=== PATIENT | male | born 1970 | race Caucasian/White ===

== ENCOUNTER → 2018-10-21 13:17 | Outpatient (REF) | payer OTHER, SELFPAY | LOC: LAB 13:17 | PROVIDERS: PCP Internal Medicine; Visit Provider Otolaryngology | DX: J34.0 Abscess, furuncle and carbuncle of nose (principal); G47.33 Obstructive sleep apnea (adult) (pediatric) | CPT/HCPCS: 87070; 87077; 87147; 87186 ==

== ENCOUNTER → 2020-03-18 13:48 | Outpatient (CLI) | payer OTHER, SELFPAY ==
[2020-03-18 14:41] LABS: Add Manual Diff / Slide Review NO; Basophils Absolute Auto 0 /uL (0-100); Basophils Percent Auto 0.4 % (0-2); Eosinophils Absolute Auto 100 /uL (0-450); Eosinophils Percent Auto 1.4 % (2-4); Hematocrit 42.9 % (41-53); Lymphocytes Absolute Auto 1600 /uL (1100-4500); Lymphocytes Percent Auto 28.1 % (25-40); Mean Corpuscular HGB Conc 34.8 % (30-36); Mean Corpuscular Hemoglobin 31.6 PG (26-34); Mean Corpuscular Volume 90.8 fL (80-100); Monocytes Absolute Auto 400 /uL (0-900); Monocytes Percent Auto 6.8 % (3-14); Neutrophils Absolute Auto 3600 /uL (1500-7000); Neutrophils Percent Auto 63.3 % (50-75); Platelet Count 259 X10^3/uL (150-400); Red Blood Cell Count 4.73 X10^6/uL (4.5-5.9); White Blood Cell Count 5.8 X10^3/uL (4.5-11.0)
[2020-03-18 15:05] LABS: Alanine Aminotransferase 37 IU/L (<50); Albumin 4.8 g/dL (3.5-5.0); Albumin Globulin Ratio 1.8 (1.0-2.8); Alkaline Phosphatase 77 U/L (38-126); Aspartate Aminotransferase 29 IU/L (17-59); BUN Creatinine Ratio 15.1 (6-22); Bilirubin Total 0.9 mg/dL (0.2-1.3); Blood Urea Nitrogen 18 mg/dL (9-20); Calcium 9.9 mg/dL (8.4-10.2); Carbon Dioxide 28 mmol/L (22-32); Chloride 104 mmol/L (98-107); Cholesterol 252 mg/dL (140-199); Creatinine Urine Random 159.5 mg/dL; Estimated Glomerular Filt Rate > 60.0 mL/min (>60); Globulin 2.7 g/dL (1.7-4.1); Glucose 113 mg/dL (70-100); HDL Cholesterol 54 mg/dL (40-60); HEMOLYSIS < 15 (0-50); LDL Cholesterol Calculated 132 mg/dL (<100); Potassium 4.2 mmol/L (3.4-5.1); Sodium 138 mmol/L (137-145); Total Protein 7.5 g/dL (6.3-8.2); Triglycerides 330 mg/dL (35-150); Uric Acid 9.1 mg/dL (3.5-8.5)
[2020-03-18 15:12] LABS: Microalbumin Urine Random 0.8 mg/dL (0-1.6)
[2020-03-18 15:35] LABS: TSH w/ Reflex to FT4 3.19 uIU/mL (0.47-4.68)
== END ==
LOC: PHYS 13:52 → LAB 13:53
PROVIDERS: PCP Family Medicine; Referring Provider Family Medicine; Visit Provider Family Medicine
DX: Z13.29 Encounter for screening for other suspected endocrine disorder (principal); Z12.11 Encounter for screening for malignant neoplasm of colon; Z12.5 Encounter for screening for malignant neoplasm of prostate; E78.5 Hyperlipidemia, unspecified; E79.0 Hyperuricemia without signs of inflammatory arthritis and tophaceous disease; I10 Essential (primary) hypertension
CPT/HCPCS: 36415; 80053; 80061; 82043; 82565; 82570; 84443; 84520; 84550; 85025; G0103

== ENCOUNTER → 2020-06-08 08:31 | Outpatient (CLI) | payer OTHER, SELFPAY ==
[2020-06-09 16:55] LABS: Fecal Immunochemical Test Negative (Negative)
== END ==
PROVIDERS: PCP Family Medicine; Referring Provider Family Medicine; Visit Provider Family Medicine
DX: Z12.11 Encounter for screening for malignant neoplasm of colon (principal); Z12.5 Encounter for screening for malignant neoplasm of prostate
CPT/HCPCS: 82274

== ENCOUNTER → 2020-06-08 09:36 | Outpatient (CLI) | payer OTHER, SELFPAY ==
--- NOTE | 2020-06-08 09:37 | DI.RAD.S_ITS ---
PROCEDURE: XR HAND RT MIN 3V INDICATIONS: right thumb pain TECHNIQUE: 3 views of the hand(s) acquired. COMPARISON: None. FINDINGS: Bones: No fractures or dislocations. Carpal bones are normally aligned. No suspicious bony lesions. Soft tissues: No suspicious soft tissue calcifications. IMPRESSION: No fracture. No osseous lesion. If symptoms and/or clinical suspicion for pathology persists, further assessment with repeat radiographs (7-10 days) or advanced imaging (e.g. CT, MRI or bone scan) may be helpful. Dictated by: Leonora Dey MD, PhD on 06/08/2020 at 16:24 Approved by: Leonora Dey MD, PhD on 06/08/2020 at 16:24
== END ==
PROVIDERS: PCP Family Medicine; Referring Provider Family Medicine; Visit Provider Family Medicine
DX: M79.644 Pain in right finger(s) (principal); Z12.5 Encounter for screening for malignant neoplasm of prostate; Z12.11 Encounter for screening for malignant neoplasm of colon
CPT/HCPCS: 73130; 82274

== ENCOUNTER → 2020-07-11 06:26 | Outpatient (CLI) | payer OTHER, SELFPAY ==
--- NOTE | 2020-07-11 06:27 | DI.MRI.S_ITS ---
PROCEDURE: MR WRIST RT WO CON INDICATIONS: Persistence of discomfort base of right thumb now with insta TECHNIQUE: Noncontrast coronal proton density fast spin echo and T2 fast spin echo with fat saturation; coronal 3-D gradient echo, axial T1 spin echo and T2 fast spin echo with fat saturation, sagittal T1 spin echo through the wrist. COMPARISON: None. FINDINGS: Image quality: Excellent. Bones and cartilage: The carpal bones are normally aligned. No fracture or dislocation. Mild osteoarthritic changes involving radiocarpal and ulnar carpal joints are seen with joint space narrowing and mild subchondral sclerosis and edema. Osteoarthritic changes also noted involving scaphoid trapezial joint and 1st CMC joint. No evidence for avascular necrosis. Carpal ligaments: The scapholunate and lunotriquetral ligaments appear intact. In the absence of intra-articular contrast, the extrinsic carpal ligaments are not well identified. On sagittal images, the pisohamate ligament appears intact. Triangular fibrocartilage complex: The triangular fibrocartilage appears intact. The adjacent meniscal homolog appears normal in the absence of intra-articular contrast. The extensor carpi ulnaris tendon is normal in location and morphology. Tendons and soft tissues: The carpal tunnel structures appear normal, including the median nerve. The ulnar nerve appears normal within Guyon's canal. All six extensor tendon compartments demonstrate normal morphology, without pathologic tendon sheath fluid. No soft tissue ganglion cysts. IMPRESSION: 1. 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 No fracture or dislocation. 2. Intrinsic and extrinsic wrist ligaments are grossly intact. Triangular fibrocartilage complex is intact. 3. No significant wrist tendinosis or tendon tear. Dictated by: Jim Butt M.D. on 07/11/2020 at 10:09 Approved by: Jim Butt M.D. on 07/11/2020 at 10:20
== END ==
PROVIDERS: PCP Family Medicine; Referring Provider Family Medicine; Visit Provider Family Medicine
DX: S63.641A Sprain of metacarpophalangeal joint of right thumb, initial encounter (principal); X58.XXXA Exposure to other specified factors, initial encounter
CPT/HCPCS: 73221

== ENCOUNTER 2020-08-22 12:45 | Outpatient (RCR) | payer OTHER, SELFPAY ==
--- NOTE | 2020-08-18 16:50 | PT.OIE ---
Current Diagnoses Sprain of metacarpophalangeal joint of unspecified thumb, initial encounter (08/18/20) Past Medical History (Last Updated 07/06/20 @ 18:40 by Win Garrison DO) Asthma Hyperlipidemia Hypertension Hyperuricemia Mild depression Skier's thumb Strain of right thumb Well adult exam Visit Care Team Role Provider Type Win Garrison DO Attending Provider Physician Family Provider Primary Care Provider Referring Provider Specialty: Family Practice Address: [address] [place] [address], [facility] Email: [email or web address] Physical Therapy Initial Evaluation PT-OP-A Visit Information Start: 08/14/20 18:32 Freq: Status: Active Protocol: Document 08/18/20 12:46 LRN (Rec: 08/18/20 13:44 LRN [id number]) Out-Patient Physical Therapy Visit Information Visit Information Visit Type Initial Evaluation Visit Start Time 12:50 Visit Stop Time 13:42 Total Visit Minutes 52 Visit Number 1 Evaluation Information Evaluation Date 08/18/20 PT-OP-B Current Condition Start: 08/14/20 18:32 Freq: Status: Active Protocol: Document 08/18/20 12:46 LRN (Rec: 08/18/20 13:44 LRN [id number]) Current Condition History of Current Condition Onset Date November 2007 History of Current Condition Pt reports he fell off a ladder at work, in [place]. He states, on the R side, broke humerus arm, shattered wrist and got hernia in pelvic area. States he had surgery on R wrist 12/2007 to cleaned things out, had PT and had somewhat return of motion and now it occasionally catches. States in May he drove straight through to [place] ( 16 hrs), woke up the next day with the R thumb (also around the thumb) swollen and bright red and it moved into the wrist. After the swelling went down the R thumb, index & middle finger (entire finger) went numb. Now the swelling and numbness is intermittent. Gets episodes of gout in the feet. Prior Treatments and Tests 2008 X-rays in [place]. [facility]. 2008 Surgery @ [facility], ?Dr Kaufman. Recent X-ray & MRI @ . Treatment Goals Patient/Caregiver Goals Pt goal with therapy is to be able to work for 9-10 more years, so he wants to find the root problem and get if fixed if there is a problem. 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 Prior Functional Status Baseline Function- ADL's Independent Baseline Function- Mobility Independent Baseline Function- Work/School No problems prior to [place] trip. Works for [employer], works 7 - 12 hrs days . Baseline Function- Recreation/Hobbies Had just finished a remodel on home a week & half before trip without hand problem. 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 Pt is L handed. Functional Limitations- Work/School Sometimes has to modify how he does things or has help at work. 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 He indicates, not so much in the [place] eminence. The more he uses his R hand, the more fatigued it gets. He has a wrist brace with a thumb palacios, at work that has helped. Personal Factors Other Personal Factors That May Effect DDD in lower back, Therapy/Recovery Fractured R wrist in 2007, Works seven 12 hour days in a row, then 7 off. PT-OP-C Subjective Start: 08/14/20 18:32 Freq: Status: Active Protocol: Document 08/18/20 12:46 LRN (Rec: 08/18/20 13:44 LRN [id number]) OP-PT Pain Assessment Pain Assessment Grid Paper Pain Assessment Grid Completed Yes Location R thumb Pain Location Details R thumb MCP jt Intensity 6 Scale Used Numeric (0 - 10) Description Aching,Burning,Sharp Frequency Constant Pain Duration Intermittent sharp and burning pain, ache is constant Pain Alleviating Factors Cold Other Pain Alleviating Factors IBP PT-OP-J Posture/Palpation/Skin Start: 08/14/20 18:32 Freq: Status: Active Protocol: Document 08/18/20 12:46 LRN (Rec: 08/18/20 13:44 LRN [id number]) Palpation Assessment Location Lunate Palpation Location R Lunate Palpation Findings Tenderness Palpation Details PA and AP glides. Scaphoid Palpation Location R Scaphoid Palpation Findings Tenderness Palpation Details PA and AP glides PT-OP-K Range of Motion Start: 08/14/20 18:32 Freq: Status: Active Protocol: Document 08/18/20 12:46 LRN (Rec: 08/18/20 13:44 LRN [id number]) Cervical Spine Range of Motion Cervical Spine Active Degrees Testing Position Sitting Lateral Flexion Left 27 Lateral Flexion Right 23 ROM Limitations Soft Tissue Tightness Shoulder Goniometric Range of Motion Shoulder Right Active Testing Position Sitting External Rotation at 0 degrees Abduction 50 Comments AROM is WNL except as indicated above. Left Active Shoulder ROM WFL Yes Testing Position Sitting External Rotation at 0 degrees Abduction 57 Comments AROM is WNL except as indicated above. Elbow/Forearm Range of Motion Elbow/Forearm Left Active Supination (degrees) 70 Comments AROM is WNL except as indicated above. Right Active Elbow/Forearm ROM WFL Yes ROM Testing Position Sitting Supination (degrees) 70 Comments AROM is WNL except as indicated above. Wrist Goniometric Range of Motion Wrist Right Flexion Active (degrees) 30 Extension Active (degrees) 55 Ulnar Deviation Active (degrees) 45 Radial Deviation Active (degrees) 20 Left Flexion Active (degrees) 37 Extension Active (degrees) 60 Ulnar Deviation Active (degrees) 44 Radial Deviation Active (degrees) 33 Thumb Goniometric Range of Motion Thumb Left Thumb ROM WFL Yes MCP Flexion Active (degrees) 32 IP Flexion Active (degrees) 84 CMC Flexion Active (degrees) 4 Comments MCP active extension: Lacks 8 deg's. Right Thumb ROM WFL No MCP Flexion Active (degrees) 38 IP Flexion Active (degrees) 80 CMC Flexion Active (degrees) 4 Comments MCP active extension: Lacks 10 deg's. 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 Discussed use of cryotherapy to reduce swelling in the R thumb. PT-OP-T Assessment and Plan Start: 08/14/20 18:32 Freq: Status: Active Protocol: Document 08/18/20 12:46 LRN (Rec: 08/18/20 13:44 LRN [id number]) Physical Therapy Assessment Rehab Potential Rehabilitation Potential Good Evaluation Complexity Number of Personal Factors/Comorbidities 3 or More Number of Body Systems Impaired 4 or More Clinical Presentation at Evaluation Evolving Impairments Impairments Activity Tolerance,Pain,ROM, Strength Goals Three Impairment Decreased AROM of R thumb & index finger (CMC & MCP joints flex). Short Term Goal (STG) Pt will be educated in ROM ( flex) exercises for home program. STG Duration 08/26/20 Assisted Goal (LTG) Pt will demonstrate improved R thumb and index finger mobility. LTG Duration 10/17/20 Two Impairment Decreased strength of R thumb (CMC & MCP joints flex is 4+/5 ). Short Term Goal (STG) Pt will be educated in strengthening exercises for home program. STG Duration 08/26/20 Assisted Goal (LTG) Pt will demonstrate improved R thumb [id number] LTG Duration 10/17/20 One Impairment Lacks appropriate self care HEP Short Term Goal (STG) Pt will be educated in home program for management of swelling in R hand. STG Duration 08/26/20 Manager Creative Goal (LTG) Pt will be independent in a self care HEP. LTG Duration 10/17/20 Assessment Summary Assessment Pt presents with swelling of the R thumb MCP joint and decreased mobility and strength due to pain. 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 The pt also presented with a + Adrianne Test indicating de Quervain's tenosynovitis is likely. The pt will benefit from physical therapy for education in proper hand care and for education in a self care HEP of ROM and strengthening exercises for the hand over 1-2 visits, unless the pt chooses to remain at [facility] for his rehabilitation. Recommend rehabilitation with a hand specialist at [facility] or with ANGLE Odonnell. Physical Therapy Plan Frequency and Duration Frequency of Treatment 1x/Week Plan of Care Start Date 08/18/20 Plan of Care End Date 10/17/20 Therapeutic Interventions Therapeutic Interventions Home Exercise Program,Joint Mobilizations,Manual Therapy, Patient/Caregiver Education, Self-Care/Home Management,Soft Tissue Mobilization,Taping, Therapeutic Exercises Modalities Cold Pack/Ice Massage,Hot Packs,Paraffin Bath Other Referrals/Consults Referrals/Consults Recommended Certified Hand Specialist ANGLE Odonnell, at [facility] or Hand specialist at [facility]3]. Next Visit Focus/Plan Next Note Type Treatment Note Next Visit Plan Educate pt in contrast bath self care and L thumb ROM/ strengthening exercises for independent HEP. Possible DC to hand specialist for assessment of possible thumb brace to stabilize L thumb MCP joint. Will discuss plan of care further at next visit.
--- NOTE | 2020-08-18 16:50 | PT.OPPOC ---
Physical, Occupational & Speech Therapy At [facility] Current Diagnoses Sprain of metacarpophalangeal joint of unspecified thumb, initial encounter (08/18/20) Visit Care Team Role Provider Type Win Garrison DO Attending Provider Physician Family Provider Primary Care Provider Referring Provider Specialty: [facility] Practice Address: [address] [place] [address], [facility] Email: [email or web address] Plan Of Care PT-OP-T Assessment and Plan Start: 08/14/20 18:32 Freq: Status: Active Protocol: Document 08/18/20 12:46 LRN (Rec: 08/18/20 13:44 LRN [id number]) Physical Therapy Assessment Rehab Potential Rehabilitation Potential Good Evaluation Complexity Number of Personal Factors/Comorbidities 3 or More Number of Body Systems Impaired 4 or More Clinical Presentation at Evaluation Evolving Impairments Impairments Activity Tolerance,Pain,ROM, Strength Goals Three Impairment Decreased AROM of R thumb & index finger (CMC & MCP joints flex). Short Term Goal (STG) Pt will be educated in ROM ( flex) exercises for home program. STG Duration 08/26/20 Delinquency Counselor Goal (LTG) Pt will demonstrate improved R thumb and index finger mobility. LTG Duration 10/17/20 Two Impairment Decreased strength of R thumb (CMC & MCP joints flex is 4+/5 ). Short Term Goal (STG) Pt will be educated in strengthening exercises for home program. STG Duration 08/26/20 Delinquency Counselor Goal (LTG) Pt will demonstrate improved R thumb [id number] LTG Duration 10/17/20 One Impairment Lacks appropriate self care HEP Short Term Goal (STG) Pt will be educated in home program for management of swelling in R hand. STG Duration 08/26/20 Halfway Goal (LTG) Pt will be independent in a self care HEP. LTG Duration 10/17/20 Assessment Summary Assessment Pt presents with swelling of the R thumb MCP joint and decreased mobility and strength due to pain. 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 The pt also presented with a + Adrianne Test indicating de Quervain's tenosynovitis is likely. The pt will benefit from physical therapy for education in proper hand care and for education in a self care HEP of ROM and strengthening exercises for the hand over 1-2 visits, unless the pt chooses to remain at [facility] for his rehabilitation. Recommend rehabilitation with a hand specialist at [facility] or with ANGLE Odonnell. Physical Therapy Plan Frequency and Duration Frequency of Treatment 1x/Week Plan of Care Start Date 08/18/20 Plan of Care End Date 10/17/20 Therapeutic Interventions Therapeutic Interventions Home Exercise Program,Joint Mobilizations,Manual Therapy, Patient/Caregiver Education, Self-Care/Home Management,Soft Tissue Mobilization,Taping, Therapeutic Exercises Modalities Cold Pack/Ice Massage,Hot Packs,Paraffin Bath Other Referrals/Consults Referrals/Consults Recommended Certified Hand Specialist ANGLE Odonnell, at [facility] or Hand specialist at [facility]. Next Visit Focus/Plan Next Note Type Treatment Note Next Visit Plan Educate pt in contrast bath self care and L thumb ROM/ strengthening exercises for independent HEP. Possible DC to hand specialist for assessment of possible thumb brace to stabilize L thumb MCP joint. Will discuss plan of care further at next visit. Plan of Care Dates Plan of Care Start Date 08/18/20 Plan of Care End Date 10/17/20 Electronically Signed by: Courtney Reyes, PT 08/19/20 [id number] Please Sign and Return: I have reviewed this Plan of Care and certify that the skilled therapy services above are required to meet the patient?s needs. Physician Signature Date Printed Name and Credentials Clinical Instructor Signature Printed Name and Credentials
--- NOTE | 2020-08-22 16:45 | PT.OTN ---
Current Diagnoses Sprain of metacarpophalangeal joint of unspecified thumb, initial encounter (08/22/20) Physical Therapy Treatment Note PT-OP-A Visit Information Start: 08/14/20 18:32 Freq: Status: Active Protocol: Document 08/22/20 12:46 LRN (Rec: 08/22/20 13:41 LRN [id number]) Out-Patient Physical Therapy Visit Information Visit Information Visit Type Treatment Note Visit Start Time 12:46 Visit Stop Time 13:39 Total Visit Minutes 53 Visit Number 2 Evaluation Information Evaluation Date 08/18/20 PT-OP-B Current Condition Start: 08/14/20 18:32 Freq: Status: Active Protocol: Document 08/18/20 12:46 LRN (Rec: 08/18/20 13:44 LRN [id number]) Current Condition History of Current Condition Onset Date November 2007 History of Current Condition Pt reports he fell off a ladder at work, in [place]. He states, on the R side, broke humerus arm, shattered wrist and got hernia in pelvic area. States he had surgery on R wrist 12/2007 to cleaned things out, had PT and had somewhat return of motion and now it occasionally catches. States in May he drove straight through to [place] ( 16 hrs), woke up the next day with the R thumb (also around the thumb) swollen and bright red and it moved into the wrist. After the swelling went down the R thumb, index & middle finger (entire finger) went numb. Now the swelling and numbness is intermittent. Gets episodes of gout in the feet. Prior Treatments and Tests 2007 X-rays in [place]. [facility]. 2008 Surgery @ [facility], ?Dr Kaufman. Recent X-ray & MRI @ . Treatment Goals Patient/Caregiver Goals Pt goal with therapy is to be able to work for 9-10 more years, so he wants to find the root problem and get if fixed if there is a problem. 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 Prior Functional Status Baseline Function- ADL's Independent Baseline Function- Mobility Independent Baseline Function- Work/School No problems prior to [place] trip. Works for [employer], works 7 - 12 hrs days . Baseline Function- Recreation/Hobbies Had just finished a remodel on home a week & half before trip without hand problem. Current Functional Impairments (Reported) Functional Limitations- ADL's R Sole Stitcher Hand strength is decreased and he fatigues causing wrist pain. Pt is L handed. Functional Limitations- Work/School Sometimes has to modify how he does things or has help at work. 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 He indicates, not so much in the Thenar eminence. The more he uses his R hand, the more fatigued it gets. He has a wrist brace with a thumb palacios, at work that has helped. Personal Factors Other Personal Factors That May Effect DDD in lower back, Therapy/Recovery Fractured R wrist in 2007, Works seven 12 hour days in a row, then 7 off. PT-OP-C Subjective Start: 08/14/20 18:32 Freq: Status: Active Protocol: Document 08/22/20 12:46 LRN (Rec: 08/22/20 13:41 LRN [id number]) OP-PT Subjective Patient Comments Patient Comments No change. States he has been using ice on his thumb. Reports pain at the wrist lifting his hand, since last visit. PT-OP-J Posture/Palpation/Skin Start: 08/14/20 18:32 Freq: Status: Active Protocol: Document 08/18/20 12:46 LRN (Rec: 08/18/20 13:44 LRN [id number]) Palpation Assessment Location Lunate Palpation Location R Lunate Palpation Findings Tenderness Palpation Details PA and AP glides. Scaphoid Palpation Location R Scaphoid Palpation Findings Tenderness Palpation Details PA and AP glides PT-OP-K Range of Motion Start: 08/14/20 18:32 Freq: Status: Active Protocol: Document 08/18/20 12:46 LRN (Rec: 08/18/20 13:44 LRN [id number]) Cervical Spine Range of Motion Cervical Spine Active Degrees Testing Position Sitting Lateral Flexion Left 27 Lateral Flexion Right 23 ROM Limitations Soft Tissue Tightness Shoulder Goniometric Range of Motion Shoulder Right Active Testing Position Sitting External Rotation at 0 degrees Abduction 50 Comments AROM is WNL except as indicated above. Left Active Shoulder ROM WFL Yes Testing Position Sitting External Rotation at 0 degrees Abduction 57 Comments AROM is WNL except as indicated above. Elbow/Forearm Range of Motion Elbow/Forearm Left Active Supination (degrees) 70 Comments AROM is WNL except as indicated above. Right Active Elbow/Forearm ROM WFL Yes ROM Testing Position Sitting Supination (degrees) 70 Comments AROM is WNL except as indicated above. Wrist Goniometric Range of Motion Wrist Right Flexion Active (degrees) 30 Extension Active (degrees) 55 Ulnar Deviation Active (degrees) 45 Radial Deviation Active (degrees) 20 Left Flexion Active (degrees) 37 Extension Active (degrees) 60 Ulnar Deviation Active (degrees) 44 Radial Deviation Active (degrees) 33 Thumb Goniometric Range of Motion Thumb Left Thumb ROM WFL Yes MCP Flexion Active (degrees) 32 IP Flexion Active (degrees) 84 CMC Flexion Active (degrees) 4 Comments MCP active extension: Lacks 8 deg's. Right Thumb ROM WFL No MCP Flexion Active (degrees) 38 IP Flexion Active (degrees) 80 CMC Flexion Active (degrees) 4 Comments MCP active extension: Lacks 10 deg's. PT-OP-L Special Tests Start: 08/14/20 18:32 Freq: Status: Active Protocol: Document 08/18/20 12:46 LRN (Rec: 08/18/20 13:44 LRN [id number]) Special Tests Wrist/Hand Special Tests Adrianne's Test Results + Right Comments Pain at MCP jt PT-OP-M Strength Start: 08/14/20 18:32 Freq: Status: Active Protocol: Document 08/22/20 12:46 LRN (Rec: 08/22/20 13:41 LRN [id number]) Hand Sole Stitcher Hand/Pinch Strength Hand Dominance Hand Dominance Left Hand Strength Left Sole Stitcher Hand (lbs) 84 Palmar Pinch (lbs) 11 Tip Pinch (lbs) 10.6 Comments 3 Trials: Sole Stitcher Hand (lbs): 88, 84, 80 Palmar Pinch (lbs): 11, 12, 11 Pinch (lbs): 12, 11, 9 Right Sole Stitcher Hand (lbs) 28 Palmar Pinch (lbs) 6 Tip Pinch (lbs) 3 Comments 3 Trials: Sole Stitcher Hand (lbs): 25, 25, 35 Palmar Pinch (lbs): 7, 7, 5 Pinch (lbs): 7, 6, 6 Strength was just prior to pain. PT-OP-Q Treatments Start: 08/14/20 18:32 Freq: Status: Active Protocol: Document 08/22/20 12:46 LRN (Rec: 08/22/20 17:50 LRN [id number]) Therapeutic Exercises Sitting Exercises R thumb AB/AD Sitting Exercise Name R thumb AB/AD Side right Reps/Minutes 10-15x R thumb Flex Sitting Exercise Name R thumb Flex Side right Reps/Minutes 10-15x R thumb ext Sitting Exercise Name R thumb ext with rubberband Side right Reps/Minutes 10x Comments Extra time to determine max tolerance and band positioning . Palmar Pinch Sitting Exercise Name Palmar Pinch Side bilateral Comments Forearm in neutral, MMT taken Pinch ex Sitting Exercise Name Thumb with index finger pinch Side bilateral Comments Forearm in neutral, MMT taken Gripping Sitting Exercise Name Gripping with dynamometer Side bilateral Comments MMT taken Opposition Sitting Exercise Name Thumb Opposition with with all fingers Side right Comments Extra time for MWM (PA glide 2nd phalanx on 3rd phalanx of MCP of thumb Wrist stretch Sitting Exercise Name Wrist stretch flex/ext: Elbow flexed Side right Reps/Minutes 6' Comments Teach stretch w/elbow straight if not difficult when elbow is flexed. Manual Therapy Treatment Joint Mobilizations R Carpals Joint Scaphoid, Triquetral, Lunate Grade II Body Position Sitting Reps/Duration 2' R wrist Joint Wrist Direction PA & AP glides Grade II Body Position Sitting Reps/Duration 2' Comments No discomfort Taping MCP of R thumb Body Location MCP of R thumb Treatment Focus Anterior, Posterior, & Lateral ligaments for Stability Type of Tape Kinesio Tape Skin Inspection Good Comments Pt I/S that tape is only good to be on 5 days. I/S pt to remove if pain or decrease in circulation. Self-Care/Home Management Treatment Education Patient Education Home Exercise Program Other Education Discussed POC of continuing therapy or continuing therapy with a hand specialist. Recommended and discussed, pt seek new referral for hand specialist to treat for possible bracing, followed by therapy. Activities Self-Care/Home Management Activities Issued & reviewed HEP: Wrist ext/flex stretch; Thumb opposition, tendon glides, ball squeeze for general finger flexion, rubber band extension, Putty pad pinch, putty extension loop. Issued Yellow T-Putty that pt forgot and I/S pt in finger ext with Rubber band. Issued & reviewed self care for contrast bath treatment. PT-OP-T Assessment and Plan Start: 08/14/20 18:32 Freq: Status: Active Protocol: Document 08/22/20 12:46 LRN (Rec: 08/22/20 13:41 LRN [id number]) Physical Therapy Assessment Goals Three Impairment Decreased AROM of R thumb & index finger (CMC & MCP joints flex). Short Term Goal (STG) Pt will be educated in ROM ( flex) exercises for home program. STG Duration 08/26/20 (08/22/20: MET GOAL) Prison Goal (LTG) Pt will demonstrate improved R thumb and index finger mobility. LTG Duration 10/17/20 Two Impairment Decreased strength of R thumb (CMC & MCP joints flex is 4+/5 ). Short Term Goal (STG) Pt will be educated in strengthening exercises for home program. STG Duration 08/26/20 (08/22/20: MET GOAL) Program Director Group Work Goal (LTG) Pt will demonstrate improved R thumb [id number] LTG Duration 10/17/20 One Impairment Lacks appropriate self care HEP Short Term Goal (STG) Pt will be educated in home program for management of swelling in R hand. STG Duration 08/26/20 (08/22/20: MET GOAL) Prison Goal (LTG) Pt will be independent in a self care HEP. LTG Duration 10/17/20 (08/22/20: Progressed ) Progress Towards Goals Progress Comments Self care ex's and edema management issued. Kinesiotape helped decrease pt 's pain with thumb use. Assessment Summary Assessment Pt demonstrated a negative Adrianne Test today, but pain with right thumb MCP joint PA and lateral glides indicating instability. The pt had less pain and felt more secure with use of his R thumb after kinesiotaping for stability. Since the pt requires high impact use of his hands for his job, he would probably benefit from a thumb splint for stability at the MCP jt with therapy afterwards. Physical Therapy Plan Frequency and Duration Frequency of Treatment 1x/Week Plan of Care Start Date 08/18/20 Plan of Care End Date 10/17/20 Other Referrals/Consults Referrals/Consults Recommended Recommend the pt be seen by a hand specialist for possible need of R thumb splint for protection of the MCP joint. After discussion of how the pt's hand dysfunction began it is possible that the pt has a cervical component to his hand dysfunction; therefore if he does not improve after splinting and hadn therapy, then physical therapy for his neck would be appropriate. Next Visit Focus/Plan Next Note Type Treatment Note Next Visit Plan Possible DC to hand specialist for assessment of possible thumb brace to stabilize L thumb MCP joint. Pt to decide if he wants to contact referring physician for referral to hand specialist for evaluation of a R thumb splint and if needed hand therapy. Pt will call back with his decision to continue outpatient physical therapy or transfer to a hand specialist .
--- NOTE | 2020-08-30 16:58 | PT-OP ANOTE ---
Message left requesting a call back to inform whether the pt will be continuing therapy with a hand specialist and if he wants to DC from therapy. Phone number given to call back.
--- NOTE | 2020-09-15 16:53 | PT.OPDS ---
Current Diagnoses Sprain of metacarpophalangeal joint of unspecified thumb, initial encounter (08/22/20) Visit Care Team Role Provider Type Win Garrison DO Attending Provider Physician Family Provider Primary Care Provider Referring Provider Specialty: Family Practice Address: [address] [place] [address], [facility] Email: [email or web address] Visit Number Visit Number 2 Discharge Summary PT-OP-B Current Condition Start: 08/14/20 18:32 Freq: Status: Active Protocol: Document 08/18/20 12:46 LRN (Rec: 08/18/20 13:44 LRN [id number]) Current Condition History of Current Condition Onset Date November 2007 History of Current Condition Pt reports he fell off a ladder at work, in [place]. He states, on the R side, broke humerus arm, shattered wrist and got hernia in pelvic area. States he had surgery on R wrist 12/2007 to cleaned things out, had PT and had somewhat return of motion and now it occasionally catches. States in May he drove straight through to [place] ( 16 hrs), woke up the next day with the R thumb (also around the thumb) swollen and bright red and it moved into the wrist. After the swelling went down the R thumb, index & middle finger (entire finger) went numb. Now the swelling and numbness is intermittent. Gets episodes of gout in the feet. Prior Treatments and Tests 2007 X-rays in [place]. [facility]. 2008 Surgery @ [facility], ?Dr Kaufman. Recent X-ray & MRI @ . Treatment Goals Patient/Caregiver Goals Pt goal with therapy is to be able to work for 9-10 more years, so he wants to find the root problem and get if fixed if there is a problem. 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 Prior Functional Status Baseline Function- ADL's Independent Baseline Function- Mobility Independent Baseline Function- Work/School No problems prior to [place] trip. Works for [employer], works 7 - 12 hrs days . Baseline Function- Recreation/Hobbies Had just finished a remodel on home a week & half before trip without hand problem. 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 Pt is L handed. Functional Limitations- Work/School Sometimes has to modify how he does things or has help at work. 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 He indicates, not so much in the Thenar eminence. The more he uses his R hand, the more fatigued it gets. He has a wrist brace with a thumb palacios, at work that has helped. Personal Factors Other Personal Factors That May Effect DDD in lower back, Therapy/Recovery Fractured R wrist in 2007, Works seven 12 hour days in a row, then 7 off. PT-OP-C Subjective Start: 08/14/20 18:32 Freq: Status: Active Protocol: Document 09/15/20 16:48 LRN (Rec: 09/15/20 16:53 LRN [id number]) OP-PT Subjective Patient Comments Patient Comments Late Entry of 08/31/20: Per voicemail message, pt reported he had been referred to [facility] and yes, please close my account and cancel all appointment. PT-OP-J Posture/Palpation/Skin Start: 08/14/20 18:32 Freq: Status: Active Protocol: Document 08/18/20 12:46 LRN (Rec: 08/18/20 13:44 LRN [id number]) Palpation Assessment Location Lunate Palpation Location R Lunate Palpation Findings Tenderness Palpation Details PA and AP glides. Scaphoid Palpation Location R Scaphoid Palpation Findings Tenderness Palpation Details PA and AP glides PT-OP-K Range of Motion Start: 08/14/20 18:32 Freq: Status: Active Protocol: Document 08/18/20 12:46 LRN (Rec: 08/18/20 13:44 LRN [id number]) Cervical Spine Range of Motion Cervical Spine Active Degrees Testing Position Sitting Lateral Flexion Left 27 Lateral Flexion Right 23 ROM Limitations Soft Tissue Tightness Shoulder Goniometric Range of Motion Shoulder Right Active Testing Position Sitting External Rotation at 0 degrees Abduction 50 Comments AROM is WNL except as indicated above. Left Active Shoulder ROM WFL Yes Testing Position Sitting External Rotation at 0 degrees Abduction 57 Comments AROM is WNL except as indicated above. Elbow/Forearm Range of Motion Elbow/Forearm Left Active Supination (degrees) 70 Comments AROM is WNL except as indicated above. Right Active Elbow/Forearm ROM WFL Yes ROM Testing Position Sitting Supination (degrees) 70 Comments AROM is WNL except as indicated above. Wrist Goniometric Range of Motion Wrist Right Flexion Active (degrees) 30 Extension Active (degrees) 55 Ulnar Deviation Active (degrees) 45 Radial Deviation Active (degrees) 20 Left Flexion Active (degrees) 37 Extension Active (degrees) 60 Ulnar Deviation Active (degrees) 44 Radial Deviation Active (degrees) 33 Thumb Goniometric Range of Motion Thumb Left Thumb ROM WFL Yes MCP Flexion Active (degrees) 32 IP Flexion Active (degrees) 84 CMC Flexion Active (degrees) 4 Comments MCP active extension: Lacks 8 deg's. Right Thumb ROM WFL No MCP Flexion Active (degrees) 38 IP Flexion Active (degrees) 80 CMC Flexion Active (degrees) 4 Comments MCP active extension: Lacks 10 deg's. PT-OP-L Special Tests Start: 08/14/20 18:32 Freq: Status: Active Protocol: Document 08/18/20 12:46 LRN (Rec: 08/18/20 13:44 LRN [id number]) Special Tests Wrist/Hand Special Tests Adrianne's Test Results + Right Comments Pain at MCP jt PT-OP-M Strength Start: 08/14/20 18:32 Freq: Status: Active Protocol: Document 08/22/20 12:46 LRN (Rec: 08/22/20 13:41 LRN [id number]) Hand Ship Scraper/Pinch Strength Hand Dominance Hand Dominance Left Hand Strength Left Ship Scraper (lbs) 84 Palmar Pinch (lbs) 11 Tip Pinch (lbs) 10.6 Comments 3 Trials: Ship Scraper (lbs): 88, 84, 80 Palmar Pinch (lbs): 11, 12, 11 Pinch (lbs): 12, 11, 9 Right Ship Scraper (lbs) 28 Palmar Pinch (lbs) 6 Tip Pinch (lbs) 3 Comments 3 Trials: Ship Scraper (lbs): 25, 25, 35 Palmar Pinch (lbs): 7, 7, 5 Pinch (lbs): 7, 6, 6 Strength was just prior to pain. PT-OP-T Assessment and Plan Start: 08/14/20 18:32 Freq: Status: Active Protocol: Document 09/15/20 16:48 LRN (Rec: 09/15/20 16:53 LRN [id number]) Physical Therapy Assessment Goals Three Impairment Decreased AROM of R thumb & index finger (CMC & MCP joints flex). Short Term Goal (STG) Pt will be educated in ROM ( flex) exercises for home program. STG Duration 08/26/20 (08/22/20: MET GOAL) Jail Goal (LTG) Pt will demonstrate improved R thumb and index finger mobility. LTG Duration 10/17/20 (09/15/20: GOAL NOT MET, Early DC) Two Impairment Decreased strength of R thumb (CMC & MCP joints flex is 4+/5 ). Short Term Goal (STG) Pt will be educated in strengthening exercises for home program. STG Duration 08/26/20 (08/22/20: MET GOAL) Jail Goal (LTG) Pt will demonstrate improved R thumb [id number] LTG Duration 10/17/20 (09/15/20: GOAL NOT MET, Early DC) One Impairment Lacks appropriate self care HEP Short Term Goal (STG) Pt will be educated in home program for management of swelling in R hand. STG Duration 08/26/20 (08/22/20: MET GOAL) Chainsaw Mechanic Goal (LTG) Pt will be independent in a self care HEP. LTG Duration 10/17/20 (09/15/20: GOAL NOT MET, Early DC) Assessment Summary Assessment Pt did not meet all goals due to early discharge and [facility] care to [facility] as recommended. Physical Therapy Plan Discharge Physical Therapy Discharge Comments Per voicemail, pt reported being referred to [facility] as recommended, and requested closing his account and cancelled all appointments. Thank you for your referral.
== END 2020-09-23 14:35 ==
LOC: PHYS 12:45
PROVIDERS: Family Provider Family Medicine; PCP Family Medicine; Referring Provider Family Medicine; Visit Provider Family Medicine
DX: S63.649A Sprain of metacarpophalangeal joint of unspecified thumb, initial encounter (principal)
CPT/HCPCS: 97110; 97140; 97162; 97535

== ENCOUNTER → 2021-08-22 09:22 | Outpatient (CLI) | payer OTHER, SELFPAY ==
[2021-08-22 10:08] LABS: Add Manual Diff / Slide Review NO; Basophils Absolute Auto 0 /uL (0-100); Basophils Percent Auto 0.4 % (0-2); Eosinophils Absolute Auto 100 /uL (0-450); Hematocrit 41.8 % (41-53); Hemoglobin 14.5 g/dL (13.5-17.5); Lymphocytes Absolute Auto 1700 /uL (1100-4500); Lymphocytes Percent Auto 28.6 % (25-40); Mean Corpuscular HGB Conc 34.8 % (30-36); Mean Corpuscular Hemoglobin 31.3 PG (26-34); Monocytes Absolute Auto 400 /uL (0-900); Neutrophils Absolute Auto 3700 /uL (1500-7000); Platelet Count 270 X10^3/uL (150-400); Red Blood Cell Count 4.64 X10^6/uL (4.5-5.9); Red Cell Distribution Width 13.3 % (11.6-14.8); White Blood Cell Count 5.9 X10^3/uL (4.5-11.0)
[2021-08-22 10:22] LABS: Alanine Aminotransferase 41 IU/L (<50); Albumin 4.9 g/dL (3.5-5.0); Alkaline Phosphatase 74 U/L (38-126); Aspartate Aminotransferase 27 IU/L (17-59); BUN Creatinine Ratio 15.6 (6-22); Bilirubin Total 0.6 mg/dL (0.2-1.3); Blood Urea Nitrogen 21 mg/dL (9-20); Calcium 10.2 mg/dL (8.4-10.2); Carbon Dioxide 29 mmol/L (22-32); Chloride 105 mmol/L (98-107); Cholesterol 202 mg/dL (140-199); Estimated Glomerular Filt Rate 55.5 mL/min (>60); Globulin 2.5 g/dL (1.7-4.1); Glucose 118 mg/dL (70-100); HDL Cholesterol 53 mg/dL (40-60); HEMOLYSIS < 15 (0-50); LDL Cholesterol Calculated 113 mg/dL (<100); Potassium 4.7 mmol/L (3.4-5.1); Sodium 141 mmol/L (137-145); Total Protein 7.4 g/dL (6.3-8.2); Triglycerides 179 mg/dL (35-150); Uric Acid 6.3 mg/dL (3.5-8.5)
[2021-08-22 10:50] LABS: Prostate Specific Antigen 1.01 ng/mL (0.10-4.00)
== END ==
PROVIDERS: Family Provider Family Medicine; PCP Family Medicine; Referring Provider Family Medicine; Visit Provider Family Medicine
DX: E78.5 Hyperlipidemia, unspecified (principal); E79.0 Hyperuricemia without signs of inflammatory arthritis and tophaceous disease; I10 Essential (primary) hypertension
CPT/HCPCS: 36415; 80053; 80061; 84153; 84550; 85025

== ENCOUNTER → 2021-11-02 11:10 | Outpatient (CLI) | payer OTHER, SELFPAY ==
[2021-11-02 13:11] LABS: Alanine Aminotransferase 44 IU/L (<50); Albumin 4.8 g/dL (3.5-5.0); Albumin Globulin Ratio 1.8 (1.0-2.8); Alkaline Phosphatase 64 U/L (38-126); Aspartate Aminotransferase 34 IU/L (17-59); BUN Creatinine Ratio 18.3 (6-22); Bilirubin Total 0.8 mg/dL (0.2-1.3); Blood Urea Nitrogen 23 mg/dL (9-20); Calcium 9.6 mg/dL (8.4-10.2); Carbon Dioxide 31 mmol/L (22-32); Chloride 104 mmol/L (98-107); Estimated Glomerular Filt Rate > 60.0 mL/min (>60); Globulin 2.6 g/dL (1.7-4.1); Glucose 110 mg/dL (70-100); HEMOLYSIS < 15 (0-50); Potassium 4.6 mmol/L (3.4-5.1); Sodium 140 mmol/L (137-145); Total Protein 7.4 g/dL (6.3-8.2)
== END ==
PROVIDERS: Family Provider Family Medicine; PCP Family Medicine; Referring Provider Family Medicine; Visit Provider Family Medicine
DX: N28.9 Disorder of kidney and ureter, unspecified (principal)
CPT/HCPCS: 36415; 80053

== ENCOUNTER → 2021-12-04 12:59 | Outpatient (CLI) | payer OTHER, SELFPAY ==
[2021-12-04 17:28] LABS: COVID19 -Nasal RAPID Negative (Negative)
== END ==
PROVIDERS: Family Provider Family Medicine; PCP Family Medicine; Visit Provider Surgery
DX: Z01.812 Encounter for preprocedural laboratory examination (principal); Z20.822 Contact with and (suspected) exposure to COVID-19
CPT/HCPCS: 87635; C9803

== ENCOUNTER 2021-12-05 11:07 | Day surgery (SDC) | payer OTHER, SELFPAY ==
[2021-12-05 11:33] VITALS: BMI 36.0
[2021-12-05] MEDS: LACTATED RINGERS 1,000 ML 200 ML IV (11:41)
[2021-12-05 11:42] VITALS: BP 141/87; PULSE 89; RESP 15; TEMP 36.3; O2SAT 96
--- NOTE | 2021-12-05 12:26 | PM.HP.1 ---
History of Present Illness History of Present Illness Date Patient Seen: 12/05/21 Time Patient Seen: 12:27 Chief complaint: SDC Narrative: The patient presents for colorectal screening. He had a previous colonoscopy 5 years ago significant for benign polyps. No personal or family history of colon cancer. On further history denies any recent gastrointestinal symptoms. No nausea, vomiting, abdominal pain, loss of appetite, unexplained weight loss, change in bowel habits, diarrhea, constipation, melena, hematochezia, or bright red blood per rectum. Patient History Medical History Asthma Hyperlipidemia Hypertension Hyperuricemia Mild depression Renal insufficiency Skier's thumb Skin lesion Strain of right thumb Well adult exam Family & Social History Family History Mother Diabetes mellitus Father Cancer Social History: household members spouse Tobacco & Substance use: Smoking Status Current some day smoker alcohol intake current Substance Use Type does not use Meds Home Medications and Allergies Home Medications Medication Instructions Recorded Confirmed Type cetirizine 10 mg tablet 10 mg PO QDAYP PRN #0 09/26/17 08/22/21 History fluticasone 100 mcg-salmeterol 50 #0 09/26/17 08/22/21 History mcg/dose blistr powdr for inhalation (Advair Diskus) albuterol sulfate 90 mcg/actuation INHALATION 03/18/20 08/22/21 History aerosol inhaler cyclobenzaprine 10 mg tablet 10 mg PO BEDTIME 03/18/20 12/05/21 History naproxen 375 mg tablet 375 mg PO BID PRN 03/18/20 08/22/21 History metoprolol succinate 50 mg 50 mg PO DAILY #90 tab 08/08/21 12/05/21 Rx tablet,extended release 24 hr simvastatin 40 mg tablet 40 mg PO DAILY #90 tab 09/05/21 12/05/21 Rx sodium,potassium,mag sulfates 17.5 See Rx Instructions PO .COMPLEX 11/02/21 Rx gram-3.13 gram-1.6 gram oral soln #354 ml (Suprep Bowel Prep Kit) allopurinol 300 mg tablet See Rx Instructions .ROUTE 11/24/21 12/05/21 Rx .COMPLEX #90 tab fenofibrate 150 mg capsule See Rx Instructions .ROUTE 11/24/21 12/05/21 Rx .COMPLEX #90 cap fluoxetine 20 mg capsule See Rx Instructions .ROUTE 11/24/21 12/05/21 Rx .COMPLEX #90 cap Allergies Allergy/AdvReac Type Severity Reaction Status Date / Time No Known Drug Allergies Allergy Verified 12/05/21 11:38 Exam Vital Signs (past 8 hours): - 12/05/21 11:42 Temperature 97.4 F L Pulse Rate 89 Respiratory Rate 15 Blood Pressure 141/87 H Pulse Oximetry 96 Oxygen Delivery Method Room Air Narrative Exam Narrative: GENERAL: Adult male in no apparent distress HEENT: No scleral icterus CV: Regular rate, no peripheral edema LUNGS: No increased work of breathing. Patient speaks in full sentences without oxygen support. ABDOMEN: Soft, non-tender, non-distended NEURO: Nonfocal, normal strength throughout Assessment & Plan Assessment and plan (1) Screening for colon cancer: Status: Acute Assessment & Plan narrative: The patient requires colorectal screening and colonoscopy is recommended. Technical details were discussed. Risks, benefits, alternatives explained. Risks including but not limited to myocardial infarction, aspiration, bleeding, pain, missed lesion, incomplete examination, need for further radiographic studies, colonic perforation, and need for major abdominal surgery were discussed. All questions were answered to their satisfaction, and they are in agreement with this plan. Time Spent With Patient Critical Care time: I spent a total of [] minutes of critical care time on this patient's care today; this time is exclusive of procedural time.
[2021-12-05] MEDS: fentaNYL 250 MCG/5 ML INJ IV (12:56)
[2021-12-05] MEDS: MIDAZOLAM 5 MG/5 ML VIAL IV (12:56)
--- NOTE | 2021-12-05 12:56 | P.OP.COLON_ITS ---
Operative Date/Time/Diagnoses Date of procedure: 12/05/21 Time of procedure: 12:56 Pre-op diagnosis: Personal history of colonic polyps Post-op diagnosis: same Procedure & Clinicians Study performed: Colonoscopy Same procedure as scheduled: Yes Indications: Screening. Personal history of colonic polyps Surgeon: Igor Oconnor Procedure Notes Procedure in detail: Medications: Conscious sedation using 5 mg IV midazolam and 100mcg IV of fenta nyl The history and physical was performed/updated and the patient is ASA class is 2. The procedure was discussed in detail with the patient. Potential risks complications including infection, bleeding, missed diagnosis, perforation, need for surgery, and were explained. Their questions were answered and informed consent was obtained. Patient was brought to the procedure room and placed standard monitoring equipment. The patient's vital signs were monitored continuously throughout the entire procedure. Prior to starting time-out was performed. The patient was placed in the left lateral recumbent position. Procedural sedation was administered. Examination began with a thorough inspection of the perianal area there was no evidence of fissures, fistulae, external hemorrhoids or cutaneous malignancy. The colonoscopy scope was then placed into the anal canal and was advanced to the cecum, which was identified by the ileocecal valve, the appendiceal orifice and the confluence of the taenia. The scope was then slowly withdrawn examining colon thoroughly in all directions, irrigating it of any residual stool. FINDINGS 1. No masses or polyps 2. Scattered diverticula The patient tolerated the procedure well. They will be discharged once criteria are met. The prep was of good/excellent quality. The withdrawl time was 6 minutes. The sedation time was 16 minutes. Specimen(s): none sent Complications: none Impression: Normal colonoscopy Post-procedure Recommendations: Colonoscopy in 10 years Disposition: same day surgery
[2021-12-05 12:58] VITALS: BP 133/83; PULSE 87; RESP 15; TEMP 36.7; O2SAT 92
[2021-12-05 13:03] VITALS: BP 125/77; PULSE 90; RESP 16; O2SAT 93
[2021-12-05 13:08] VITALS: BP 120/70; PULSE 85; RESP 13; O2SAT 93
[2021-12-05 13:16] VITALS: BP 122/84; PULSE 68; RESP 16; TEMP 36.3; O2SAT 98
== END 2021-12-05 13:17 | disposition home or self-care (01) ==
PROVIDERS: Family Provider Family Medicine; PCP Family Medicine; Referring Provider Surgery; Visit Provider Surgery
PROC: 0DJD8ZZ Inspection of Lower Intestinal Tract, Via Natural or Artificial Opening Endoscopic (ICD-10-PCS; CPT 45378; principal; 2021-12-05 13:00)
DX: Z12.11 Encounter for screening for malignant neoplasm of colon (principal); Z86.010 Personal history of colon polyps; K57.30 Diverticulosis of large intestine without perforation or abscess without bleeding
CPT/HCPCS: 45378; 99152; J2250; J3010

== ENCOUNTER → 2022-02-05 08:06 | Outpatient (CLI) | payer OTHER, SELFPAY ==
--- NOTE | 2022-02-05 08:07 | DI.US.S_ITS ---
PROCEDURE: US SOFT TISSUE HEAD AND NECK INDICATIONS: POSTERIOR SOFT TISSUE NECK MASS TECHNIQUE: Real-time scanning was performed of the neck region of interest, with image documentation. Color Doppler was also utilized. COMPARISON: None. FINDINGS: The area of the palpable abnormality is imaged along the posterior aspect the neck. The margins of this process are difficult to delineate, yet this measures approximately 6.2 x 6.4 x 1 4 cm. IMPRESSION: It is unclear the cause of the palpable abnormality. Differential diagnosis includes a lipoma or potentially normal tissue. If clinically appropriate, please consider follow-up CT with IV contrast or MRI (without and with contrast) of the area for further evaluation (assuming that there is no contraindication). Dictated by: Yifan Maravilla M.D. on 02/05/2022 at 8:15 Approved by: Yifan Maravilla M.D. on 02/05/2022 at 8:23
== END ==
PROVIDERS: Family Provider Family Medicine; PCP Family Medicine; Referring Provider Surgery; Visit Provider Surgery
DX: R22.1 Localized swelling, mass and lump, neck (principal)
CPT/HCPCS: 76536

== ENCOUNTER → 2022-02-19 09:00 | Outpatient (CLI) | payer OTHER, SELFPAY ==
--- NOTE | 2022-02-19 09:01 | DI.CT.S_ITS ---
PROCEDURE: CT SOFT TISSUE NECK W CON INDICATIONS: posterior neck mass TECHNIQUE: After the administration of intravenous contrast, 3.0 mm axial sections acquired from the sella to the aortic arch. 3 mm thick coronal and sagittal reformats were generated. For radiation dose reduction, the following was used: automated exposure control. Palpable midline posterior abnormality marked with a skin marker COMPARISON: None. FINDINGS: Image quality: Excellent. Lymph nodes: No enlarged lymph nodes seen throughout the neck. Vessels: Visualized vasculature appears patent. Neck spaces: The oropharynx, nasopharynx, and pharynx demonstrate no mucosal lesions. The vocal cords, false vocal cords, pyriform sinuses, epiglottis, vallecula, and tongue base all appear normal. Extramucosal spaces appear unremarkable. Glands: The parotid and submandibular glands appear normal. Thyroid gland unremarkable. Miscellaneous: Visualized brain and orbits appear normal. Lung apices appear clear. Superficial soft tissues appear normal. Bones: No suspicious bony lesions. Small right maxillary sinus retention cyst. Mild mid cervical spine degenerative disc disease IMPRESSION: No evidence of mass lesion. No CT correlate to marked palpable abnormality. Approved by: Herson Rodríguez M.D. on 02/19/2022 at 14:55
== END ==
PROVIDERS: Family Provider Family Medicine; PCP Family Medicine; Referring Provider Surgery; Visit Provider Surgery
DX: R22.1 Localized swelling, mass and lump, neck (principal)
CPT/HCPCS: 70491; Q9967

== ENCOUNTER → 2023-02-08 07:49 | Outpatient (CLI) | payer OTHER, SELFPAY ==
--- NOTE | 2023-02-08 07:50 | DI.RAD.S_ITS ---
PROCEDURE: XR LUMBAR SPINE MIN 4V INDICATIONS: BACK PAIN TECHNIQUE: 5 views of the lumbar spine were acquired, including bilateral oblique views. COMPARISON: None. FINDINGS: Bones: 5 nonrib-bearing vertebrae are present. There is normal bony alignment. No vertebral body compression fractures. No suspicious bony lesions. Lower lumbar facet arthropathy. Soft tissues: Overlying bowel gas pattern is normal. No suspicious soft tissue calcifications. Oblique images: No pars defects. IMPRESSION: Lower lumbar facet arthropathy. No evidence acute bony abnormality. If clinical suspicion and/or symptoms persist, further assessment with repeat plain films, or advanced imaging (e.g., CT, MRI, or bone scan) may be helpful for further assessment. Dictated by: Paddy Bell M.D. on 02/08/2023 at 8:25 Approved by: Paddy Bell M.D. on 02/08/2023 at 8:26
== END ==
PROVIDERS: Family Provider Family Medicine; PCP Family Medicine; Referring Provider Physical Medicine & Rehabilitation; Visit Provider Physical Medicine & Rehabilitation
DX: M54.9 Dorsalgia, unspecified (principal); M47.816 Spondylosis without myelopathy or radiculopathy, lumbar region
CPT/HCPCS: 72110

== ENCOUNTER → 2023-02-13 09:39 | Outpatient (CLI) | payer OTHER, SELFPAY ==
--- NOTE | 2023-02-13 09:42 | DI.RAD.S_ITS ---
PROCEDURE: XR HIP W PEL IF DONE REBECA MIN 4V INDICATIONS: Left hip bone island TECHNIQUE: AP pelvis with lateral view(s) of the bilateral hip(s). COMPARISON: None. FINDINGS: Bones: Right worse than left bilateral hip joint osteoarthritic changes are seen with joint space narrowing and subchondral sclerosis. No fractures or dislocations. No evidence of avascular necrosis of femoral head. Pelvic ring appears intact. Benign-appearing sclerotic area involving superior right femoral neck. No suspicious bony lesions. Soft tissues: The visualized bowel gas pattern is normal. No suspicious soft tissue calcifications. IMPRESSION: 1. Moderate right worse than left bilateral hip joint osteoarthritis. No fracture or dislocation. No evidence of avascular necrosis. 2. Likely benign sclerotic lesion involving right femoral neck, clinical and radiographic follow-up is recommended. Dictated by: Jim Butt M.D. on 02/13/2023 at 13:34 Approved by: Jim Butt M.D. on 02/13/2023 at 13:35
== END ==
PROVIDERS: Family Provider Family Medicine; PCP Family Medicine; Referring Provider Physical Medicine & Rehabilitation; Visit Provider Physical Medicine & Rehabilitation
DX: D16.9 Benign neoplasm of bone and articular cartilage, unspecified (principal); M16.0 Bilateral primary osteoarthritis of hip
CPT/HCPCS: 73522

== ENCOUNTER → 2023-04-23 08:41 | Outpatient (CLI) | payer OTHER, SELFPAY ==
--- NOTE | 2023-04-23 08:42 | DI.MRI.S_ITS ---
PROCEDURE: MR LUMBAR SPINE WO CON INDICATIONS: PROGRESSIVE AXIAL LOW BACK PAIN TECHNIQUE: Noncontrast sagittal T1 spin echo and T2 fast echo, sagittal STIR, and T2 fast spin echo through the lumbar spine. In cases with scoliosis, additional coronal T2 fast spin echo may be performed. COMPARISON: [facility], CR, XR LUMBAR SPINE MIN 4V, 02/08/2023, 7:50. FINDINGS: Image quality: Excellent. Alignment and Curvature: Mild levoconvex scoliotic curvature is noted. No focal AP alignment abnormality is seen. Bone Marrow: Marrow is of normal overall signal. No acute vertebral body compression fractures. Spinal Cord: Conus medullaris terminates at the L1 level. Visualized cord demonstrates normal signal and size. Paraspinous Soft Tissues: No paravertebral masses. Epidural lipomatosis is seen, which is worst inferiorly. T12-L1: Normal appearance. L1-L2: Mild loss of disc height is seen. Mild to moderate disc bulge is seen. There is a superimposed central disc protrusion. Mild facet joint hypertrophy is seen. Mild bilateral neural foraminal narrowing is seen. Minimal central canal narrowing is seen. L2-L3: The disc height and disk signal are relatively well-preserved. Mild to moderate disc bulge is seen, which is eccentric to the right. Mild to moderate facet hypertrophy can be seen. There is mild right-sided and no significant left-sided neural narrowing. Moderate central canal narrowing is seen. L3-L4: The disc height and disk signal are relatively well-preserved. Moderate generalized disc bulge is seen. There is a superimposed central disc protrusion. Moderate facet joint hypertrophy is seen. There is moderate right-sided and [id number] left-sided neural foraminal narrowing. At least moderate central canal narrowing is seen, which is exacerbated by epidural lipomatosis. L4-L5: The disc height and disk signal are relatively well-preserved. Moderate generalized disc bulge is seen. Moderate facet joint hypertrophy is seen. There is at least moderate right-sided and moderate to severe left-sided neural foraminal narrowing. There is a degree of compression seen upon the exiting nerve roots. Moderate to severe central canal narrowing is seen, which is worsened by epidural lipomatosis. L5-S1: The disc height and disk signal are relatively well-preserved. Mild generalized disc bulge is seen. Mild to moderate facet hypertrophy can be seen. There is moderate to severe right-sided and at least moderate left-sided neural foraminal narrowing. There is a degree of compression seen upon the exiting nerve roots. There is moderate to severe central canal narrowing seen at this level, which is worsened by epidural lipomatosis. IMPRESSION: Multiple levels lumbar spine degenerative change can be seen, which are worst inferiorly. There is epidural lipomatosis, which further narrows the central canal inferiorly. Several sites of significant neural foraminal narrowing can be seen, with associated exiting nerve root compression. Dictated by: Yifan Maravilla M.D. on 04/23/2023 at 10:37 Approved by: Yifan Maravilla M.D. on 04/23/2023 at 10:40
== END ==
PROVIDERS: Family Provider Family Medicine; PCP Family Medicine; Referring Provider Physical Medicine & Rehabilitation; Visit Provider Physical Medicine & Rehabilitation
DX: M47.816 Spondylosis without myelopathy or radiculopathy, lumbar region (principal); M47.817 Spondylosis without myelopathy or radiculopathy, lumbosacral region; M48.061 Spinal stenosis, lumbar region without neurogenic claudication; M48.07 Spinal stenosis, lumbosacral region
CPT/HCPCS: 72148

== ENCOUNTER → 2023-08-02 09:42 | Outpatient (CLI) | payer OTHER, SELFPAY ==
--- NOTE | 2023-08-02 09:44 | DI.RAD.S_ITS ---
PROCEDURE: XR HIP W PEL IF DONE REBECA MIN 4V INDICATIONS: left hip pain possible osteo chondroma TECHNIQUE: AP pelvis with lateral view(s) of the left hip(s). COMPARISON: [facility], , XR HIP W PEL IF DONE REBECA 3TO4V, 02/13/2023, 9:37. FINDINGS: Bones: Compared to prior radiograph 02/13/2023, stable appearance of benign-appearing sclerotic area involving the superior right femoral neck. Right greater than left bilateral hip osteoarthrosis. No fractures or dislocations. Pelvic ring appears intact. No suspicious bony lesions. Soft tissues: The visualized bowel gas pattern is normal. No suspicious soft tissue calcifications. IMPRESSION: 1. Compared to prior radiograph 02/13/2023, stable appearance of benign appearing sclerotic lesion involving the right femoral neck. 2. Moderate right greater than left hip joint osteoarthrosis. Dictated by: Adriane Valentin M.D. on 08/02/2023 at 13:57 Approved by: Adriane Valentin M.D. on 08/02/2023 at 14:01
== END ==
PROVIDERS: Family Provider Family Medicine; PCP Nurse Practitioner Primary Care; Referring Provider Physical Medicine & Rehabilitation; Visit Provider Physical Medicine & Rehabilitation
DX: D16.9 Benign neoplasm of bone and articular cartilage, unspecified (principal); M70.62 Trochanteric bursitis, left hip; M16.0 Bilateral primary osteoarthritis of hip
CPT/HCPCS: 73522

== ENCOUNTER 2023-08-29 08:10 | Outpatient (CLI) | payer OTHER, SELFPAY ==
[2023-08-29] VITALS (9 sets, daily range): BP systolic 126–159; BP diastolic 60–87; PULSE 79–89; RESP 12–20; TEMP 36.4; O2SAT 95–98
--- NOTE | 2023-08-29 08:45 | DI.RAD.S_ITS ---
PROCEDURE: PAIN L/S TRANSFORAM INJECT REBECA COMPARISON: [facility], MR, MR LUMBAR SPINE WO CON, 04/23/2023, 8:53. INDICATIONS: SPONDYLOSIS FINDINGS: 7 intraoperative fluoroscopy images demonstrate needle placement at L4-L5 bilaterally 4 trans foraminal epidural injection. IMPRESSION: Fluoroscopy for pain management. Dictated by: Jitendra Kumar M.D. on 08/29/2023 at 12:10 Approved by: Jitendra Kumar M.D. on 08/29/2023 at 12:10
[2023-08-29] MEDS: MIDAZOLAM 2 MG/2 ML VIAL IV (08:57)
[2023-08-29] MEDS: fentaNYL 100 MCG/2 ML INJ 50 MCG IV (09:03)
[2023-08-29] MEDS: BETAMETHASONE 30 MG/5 ML MDV 12 MG INJ (09:04)
[2023-08-29] MEDS: DEXAMETHASONE 10 MG/ML VIAL 20 MG INJ (09:04)
[2023-08-29] MEDS: iopamidoL 15 ML VIAL 3 ML INJ (09:04)
[2023-08-29] MEDS: BUPIVACAINE 0.25% (PF) VIAL 2 ML INJ (09:04)
--- NOTE | 2023-08-29 09:19 | P.PCN_ITS ---
Date/Time/Diagnoses Date of procedure: 08/29/23 Time of procedure: 09:19 Pre-procedure diagnosis: 1. FORAMINAL STENOSIS WITH LE SYMPTOMS Procedure Notes Procedure: 1. FLUOROSCOPICALLY GUIDED CONTRAST CONTROLLED TRANSFORAMINAL EPIDURAL STEROID INJECTION - BILATERAL L4/5 TFESI Indications: Ede is referred by Dr. Garrison for treatment of Foraminal Stenosis with bilateral LE Symptoms Physician: Audie Lambert Total Fluoroscopy time (seconds): 23 Total sedation minutes: 18 Complications: none Procedure in detail & Post-procedure care: FINDINGS Foraminal Nerve Root Compression secondary to disc disease and facet hypertrophy DESCRIPTION OF PROCEDURE Following review of allergy and review of potential side effects and complications, including, but not necessarily limited to, infection, allergic reaction, local tissue breakdown, stroke, temporary or permanent nerve injury, paralysis, and possible , the patient indicated that the patient understood and agreed to proceed. An informed consent document was signed by the patient, witnessed by a nurse, and placed in the patient's chart. Additionally, other treatment options including medications, modalities, and physical therapy were reviewed with the patient. After review of previous anaesthesic history and IV conscious sedation the patient was deemed safe to proceed with today?s procedure with IV conscious sedation as ASA class II designation. Safety time-out was performed to confirm patient ID, procedure to be performed and site of procedure. IV sedation was accomplished with a combination of 2mg of Versed and 50mcg of Fentanyl was administered by the RN after DO order, titrated to patient comfort during the course of the procedure while the patient remained responsive to all verbal commands In the prone position following sterile prep and drape of the lumbar region, the right L4/5 posterior neuroforamen was identified fluoroscopically. The skin was anesthetized via a 25-gauge 1.5-inch needle with 1% lidocaine solution. At this point, a 25-gauge 3.5-inch spinal needle was atraumatically introduced and advanced under fluoroscopic guidance through the posterior right L4/5 neuroforamen to approximately the anterior aspect of the canal. Depth was confirmed on lateral view. Following negative aspiration, injection of approximately 1.5cc of Isovue 200 under live fluoroscopy in the AP view confirmed excellent flow along the nerve root, into the epidural space without vascular or intrathecal uptake observed Radiological data, including multiple fluoroscopic views of the lumbosacral spine, reveal a spinal needle at the right L4/5 posterior neuroforamen. Subsequent views show flow of contrast material flowing superiorly and inferiorly along the nerve root confirming epidural flow. Subsequently, a test dose of 1.5cc of 1% lidocaine solution was administered and patient was observed for two minutes for signs or symptoms of complications, including abdominal pain, shortness of breath, bilateral upper or lower extremity weakness, nausea and vomiting, prior to steroid injection. At this point, a total of 2cc or 10mg of dexamethasone and 6mg betamethasone was injected without incident. Attention was then refocused to the left L4/5 level where the identical procedure was replicated. The procedure tolerated the procedure well without signs or symptoms of complications prior to transfer to the recovery area continued monitoring with out incident. The patient was then transferred to the recovery area where they were observed for an appropriate time after the injection. The patient reported a VAS score of 7 prior to the procedure and a post-procedure VAS of 0. POST OP INSTRUCTIONS The patient was provided a Pain Log to continue to record their response to the target-specific procedure prior to follow-up visit with their referring physician. Additionally, specific post-injection care instructions and a contact number to our office were provided if concerns arise regarding possible complications associated with the procedure are suspected.
== END 2023-08-29 09:39 | disposition home or self-care (01) ==
PROVIDERS: Family Provider Family Medicine; PCP Nurse Practitioner Primary Care; Referring Provider Physical Medicine & Rehabilitation; Visit Provider Physical Medicine & Rehabilitation
DX: M48.061 Spinal stenosis, lumbar region without neurogenic claudication (principal); M51.16 Intervertebral disc disorders with radiculopathy, lumbar region; M47.26 Other spondylosis with radiculopathy, lumbar region
CPT/HCPCS: 64483; 99152; J0702; J1100; J2250; J3010; J3490

== ENCOUNTER 2023-11-21 08:01 | Outpatient (CLI) | payer OTHER, SELFPAY ==
[2023-11-21] VITALS (8 sets, daily range): BP systolic 125–145; BP diastolic 76–86; PULSE 81–86; RESP 12–20; TEMP 36.3; O2SAT 96–99
--- NOTE | 2023-11-21 08:45 | DI.RAD.S_ITS ---
PROCEDURE: PAIN L/SI FACET INJ/BLK 1STL INDICATIONS: FACET ARTHROPATHY COMPARISON: None. FINDINGS: Fluoroscopic spot filming was performed to verify placement of spinal needles overlying the L4, L5 on S1 level(s), as labeled on the films. Appropriate location(s) of the needle tip(s) was confirmed by injection of iodinated contrast. IMPRESSION: Needle and contrast localization overlying L4, L5 on S1. Dictated by: Jennie Vines M.D. on 11/21/2023 at 13:51 Approved by: Jennie Vines M.D. on 11/21/2023 at 13:51
[2023-11-21] MEDS: MIDAZOLAM 2 MG/2 ML VIAL IV (08:59)
[2023-11-21] MEDS: BUPIVACAINE 0.5% (PF) 10 ML VIAL 5 ML INJ (09:04)
[2023-11-21] MEDS: iopamidoL 15 ML VIAL 3 ML INJ (09:04)
--- NOTE | 2023-11-21 09:15 | P.PCN_ITS ---
Date/Time/Diagnoses Date of procedure: 11/21/23 Time of procedure: 09:15 Pre-procedure diagnosis: 1. FACET ARTHROPATHY Post-procedure diagnosis: same Procedure Notes Procedure: 1. Left L4, L5 and S1 MB BLOCKS LA Indications: Ede is referred by Dr. Garrison for treatment of Left Axial LBP. Physician: Audie Lambert Total Fluoroscopy time (seconds): 8 Total sedation minutes: 13 Complications: none Procedure in detail & Post-procedure care: DESCRIPTION OF PROCEDURE Fluoroscopically guided, contrast-controlled left L4, L5 and S1 medial branch blocks with 0.5cc of 0.5% Marcaine. Following review of allergy and review of potential side effects and complications, including, but not necessarily limited to, infection, allergic reaction, local tissue breakdown, nerve injury, paralysis, stroke and possible , the patient indicated that the patient understood and agreed to proceed. An informed consent document was signed by the patient, witnessed by a nurse, and placed in the patient's chart. After review of previous anaesthesic history and IV conscious sedation the patient was deemed safe to proceed with today?s procedure with IV conscious sedation as ASA class II designation. Safety time-out was performed to confirm patient ID, procedure to be performed and site of procedure. IV sedation was accomplished with a combination of 2mg of Versed was administered by the RN after DO order, titrated to patient comfort during the course of the procedure while the patient remained responsive to all verbal commands. In the prone position, following sterile prep and drape of the lumbar region, the left L4, L5 and S1 anatomical location of the medial branch of the dorsal ramus was identified fluoroscopically. Subsequently an anesthetic skin wheal using 1% lidocaine solution was initiated at each of the anatomical spots. Subsequently then a 22-gauge 3.5-inch spinal needle was atraumatically introduced and advanced under fluoroscopic guidance at each of the corresponding sites at the left L4, L5 and S1 MB. After negative aspiration, 0.2cc of Isovue 200 was injected, confirming placement without vascular or intrathecal uptake. Subsequently then 0.5cc of 0.5% Marcaine solution was injected at each of the corresponding sites at the left L4, L5 and S1 medial branch locations. The patient tolerated the procedure well without signs or symptoms of complications. The patient tolerated the procedure well without signs or symptoms of complications prior to transfer to the recovery area continued monitoring without incident. Post-procedure, the patient was monitored initiating provocative activities to measure the amount of relief from block of the facetogenic pain. The patient reported a VAS of 7 prior to the procedure and a post-procedure VAS of 1. It has been a pleasure to assist in the diagnostic and therapeutic care of your patient. POST OP INSTRUCTIONS The patient was provided with a Pain Log to complete over the next several hours and subsequent days prior to the patient's follow up with the ordering physician. If the patient has sound effects manager relief to the solution applied, then they may be a candidate for medial branch rhizotomy. The patient is aware, was provided, once again, with a Pain Log and will follow up with the referring physician for review and clinical correlation.
== END 2023-11-21 09:42 | disposition home or self-care (01) ==
LOC: RAD 08:01
PROVIDERS: Family Provider Family Medicine; PCP Nurse Practitioner Primary Care; Referring Provider Physical Medicine & Rehabilitation; Visit Provider Physical Medicine & Rehabilitation
DX: M47.816 Spondylosis without myelopathy or radiculopathy, lumbar region (principal); M47.817 Spondylosis without myelopathy or radiculopathy, lumbosacral region
CPT/HCPCS: 64493; 64494; 99152; J2250

== ENCOUNTER 2024-01-14 07:24 | Outpatient (CLI) | payer OTHER, SELFPAY ==
[2024-01-14] VITALS (9 sets, daily range): BP systolic 153–169; BP diastolic 63–80; PULSE 78–89; RESP 13–22; TEMP 36.5; O2SAT 96–98
--- NOTE | 2024-01-14 08:00 | DI.RAD.S_ITS ---
PROCEDURE: PAIN L/SI FACET INJ/BLK 1STL INDICATIONS: Left L4-L5 and S1 medial branch block SA COMPARISON: [facility], XA, PAIN L/SI FACET INJ/BLK 1STL, 11/21/2023, 10:03. FINDINGS: Fluoroscopic spot filming was performed to verify placement of spinal needles at the L4 through S1 level(s), as labeled on the films. Appropriate location(s) of the needle tip(s) was confirmed by injection of iodinated contrast. IMPRESSION: Fluoro guidance was provided intraoperatively for left L4, L5 and S1 medial branch block performed by ordering physician. Dictated by: Jim Butt M.D. on 01/14/2024 at 13:13 Approved by: Jim Butt M.D. on 01/14/2024 at 13:13
[2024-01-14] MEDS: MIDAZOLAM 2 MG/2 ML VIAL IV (08:14)
[2024-01-14] MEDS: LIDOCAINE 2% INJ MDV 20ML 5 ML INJ (08:27)
[2024-01-14] MEDS: iopamidoL 15 ML VIAL 3 ML INJ (08:27)
--- NOTE | 2024-01-14 08:37 | P.PCN_ITS ---
Date/Time/Diagnoses Date of procedure: 01/14/24 Time of procedure: 08:37 Pre-procedure diagnosis: FACET ARTHROPATHY Post-procedure diagnosis: same Procedure Notes Procedure: 1. Left L4, L5 and S1 MB BLOCKS SA Indications: Ede is referred by Dr. Garrison for treatment of Left Axial LBP. Physician: Audie Lambert Total Fluoroscopy time (seconds): 6 Total sedation minutes: 15 Complications: none Procedure in detail & Post-procedure care: DESCRIPTION OF PROCEDURE Fluoroscopically guided, contrast-controlled left L4, L5 and S1 medial branch blocks with 0.5cc of 2% Lidocaine. Following review of allergy and review of potential side effects and complications, including, but not necessarily limited to, infection, allergic reaction, local tissue breakdown, nerve injury, paralysis, stroke and possible , the patient indicated that the patient understood and agreed to proceed. An informed consent document was signed by the patient, witnessed by a nurse, and placed in the patient's chart. After review of previous anaesthesic history and IV conscious sedation the patient was deemed safe to proceed with today?s procedure with IV conscious sedation as ASA class II designation. Safety time-out was performed to confirm patient ID, procedure to be performed and site of procedure. IV sedation was accomplished with a combination of 2mg of Versed was administered by the RN after DO order, titrated to patient comfort during the course of the procedure while the patient remained responsive to all verbal commands. In the prone position, following sterile prep and drape of the lumbar region, the left L4, L5 and S1 anatomical location of the medial branch of the dorsal ramus was identified fluoroscopically. Subsequently an anesthetic skin wheal using 1% lidocaine solution was initiated at each of the anatomical spots. Subsequently then a 22-gauge 3.5-inch spinal needle was atraumatically introduced and advanced under fluoroscopic guidance at each of the corresponding sites at the left L4, L5 and S1 MB. After negative aspiration, 0.2cc of Isovue 200 was injected, confirming placement without vascular or intrathecal uptake. Subsequently then 0.5cc of 2% Lidocaine solution was injected at each of the corresponding sites at the left L4, L5 and S1 medial branch locations. The patient tolerated the procedure well without signs or symptoms of complications. The patient tolerated the procedure well without signs or symptoms of complications prior to transfer to the recovery area continued monitoring without incident. Post-procedure, the patient was monitored initiating provocative activities to measure the amount of relief from block of the facetogenic pain. The patient reported a VAS of 7 prior to the procedure and a post-procedure VAS of 1. It has been a pleasure to assist in the diagnostic and therapeutic care of your patient. POST OP INSTRUCTIONS The patient was provided with a Pain Log to complete over the next several hours and subsequent days prior to the patient's follow up with the ordering physician. If the patient has maintenance parts technician relief to the solution applied, then they may be a candidate for medial branch rhizotomy. The patient is aware, was provided, once again, with a Pain Log and will follow up with the referring physician for review and clinical correlation.
--- NOTE | 2024-01-15 10:51 | PC.NURSE ---
Post-procedure call: Spoke with patient, he reports feeling sore last night and this morning. Encouraged to call clinic with any questions or concerns.
== END 2024-01-14 08:50 | disposition home or self-care (01) ==
LOC: RAD 07:25
PROVIDERS: Family Provider Family Medicine; PCP Nurse Practitioner Primary Care; Referring Provider Physical Medicine & Rehabilitation; Visit Provider Physical Medicine & Rehabilitation
DX: M47.816 Spondylosis without myelopathy or radiculopathy, lumbar region (principal); M47.817 Spondylosis without myelopathy or radiculopathy, lumbosacral region
CPT/HCPCS: 64493; 64494; 99152; J2250

== ENCOUNTER → 2024-02-25 09:06 | Outpatient (CLI) | payer OTHER, SELFPAY ==
--- NOTE | 2024-02-25 09:07 | DI.MRI.S_ITS ---
PROCEDURE: MR HIP RT WO CON INDICATIONS: Acetabular Tear and femoral neck lesion TECHNIQUE: Noncontrast coronal T1 spin echo and STIR through the bony pelvis. Coronal and axial T2 fast spin echo with fat saturation, sagittal T1 spin echo, and oblique axial T2 fast spin echo with fat saturation through the hip. COMPARISON: [facility], CR, XR HIP W PEL IF DONE REBECA 3TO4V, 08/02/2023, 10:52. FINDINGS: Image quality: Excellent. Bones and joints: 1.9 cm predominantly T1 and T2 hypointense lesion in the right femoral neck, with small area of T2 hyperintensity, nonspecific but favors benign etiology. No associated surrounding marrow edema. No marrow edema of the visualized lower lumbar spine, the sacrum, bilateral pelvic bones. No marrow edema of either proximal femur. No avascular necrosis of either femoral head. Small bilateral hip effusions. Tendons and ligaments: The right iliopsoas, and adductor tendon are unremarkable. The right hamstring tendon is unremarkable. Mild peritendinitis of the right gluteal minimus and the right gluteus medius. Labrum and cartilage: Posterior labral tear (series 8, image 11). No paralabral cyst. The anterior labrum is grossly intact. No focal chondral defect of the right femoral head. Soft tissues: The prostate is grossly unremarkable. IMPRESSION: 1. 1.9 cm lesion in the right femoral neck, nonspecific with favors benign etiology. 2. Mild peritendinitis of the right gluteus minimus and the right gluteus medius. 3. Posterior labral tear of the right acetabulum. Dictated by: Falguni Ogden M.D. on 02/25/2024 at 20:26 Approved by: Falguni Ogden M.D. on 02/25/2024 at 20:39
== END ==
PROVIDERS: Family Provider Family Medicine; PCP Nurse Practitioner Primary Care; Referring Provider Physical Medicine & Rehabilitation; Visit Provider Physical Medicine & Rehabilitation
DX: D16.9 Benign neoplasm of bone and articular cartilage, unspecified (principal); M76.01 Gluteal tendinitis, right hip; S73.191A Other sprain of right hip, initial encounter
CPT/HCPCS: 73721

== ENCOUNTER 2024-03-26 10:19 | Outpatient (CLI) | payer OTHER, SELFPAY ==
[2024-03-26] VITALS (9 sets, daily range): BP systolic 124–152; BP diastolic 71–91; PULSE 91–100; RESP 11–17; TEMP 36.5; O2SAT 94–97
[2024-03-26] MEDS: MIDAZOLAM 2 MG/2 ML VIAL IV (10:58)
--- NOTE | 2024-03-26 11:00 | DI.RAD.S_ITS ---
PROCEDURE: PAIN L/S MED/LAT N RFA INDICATIONS: Left L4,L5,S1 MB RFA COMPARISON: None. FINDINGS: Fluoroscopic spot filming was performed to verify placement of spinal needles at the left L4, L5 and S1 level(s), as labeled on the films. Appropriate location(s) of the needle tip(s) was confirmed by injection of iodinated contrast. IMPRESSION: Intra procedural examination demonstrating appropriate positions of the needles. Dictated by: Baljinder Richards M.D. on 03/26/2024 at 15:44 Approved by: Baljinder Richards M.D. on 03/26/2024 at 15:45
[2024-03-26] MEDS: fentaNYL 100 MCG/2 ML INJ 50 MCG IV (11:05)
[2024-03-26] MEDS: LIDOCAINE 1% 20 ML INJ (11:07)
[2024-03-26] MEDS: BUPIVACAINE 0.5% (PF) 10 ML VIAL 5 ML INJ (11:08)
--- NOTE | 2024-03-26 11:30 | P.PCN_ITS ---
Date/Time/Diagnoses Date of procedure: 03/26/24 Time of procedure: 11:30 Pre-procedure diagnosis: 1. RECALCITRANT FACET ARTHROPATHY Post-procedure diagnosis: same Procedure Notes Procedure: 1. LEFT L4 AND L5 MEDIAL BRANCH RADIOFREQUENCY NEUROTOMY AND LEFT S1 DORSAL RAMUS RADIOFREQUENCY NEUROTOMY, Indications: Ede is referred by Dr. Garrison for treatment of facet arthropathy. Physician: Audie Lambert Total Fluoroscopy time (seconds): 8 Total sedation minutes: 25 Complications: none Procedure in detail & Post-procedure care: DESCRIPTION OF PROCEDURE Left L4 and L5 medial branch radiofrequency neurotomy and left S1 dorsal ramus branch radiofrequency neurotomy under fluoroscopy with conscious sedation. The patient is well known to this clinic having undergone previous facet injections with good but temporary relief. The patient has experienced appropriate, concordant relief with previous facet and median branch blocks but the patient's pain has been recalcitrant to further conservative measures. Therefore, based upon the patient's relief and persistent symptoms, the patient is considered an appropriate candidate for facet rhizotomy. All of the patient's questions regarding the risks versus benefits of the procedure, including, but not limited to, bleeding, infection, temporary as well as lasting nerve injury, paralysis, stroke, and , as well treatment alternatives were answered to satisfaction. After obtaining informed consent, denial of pertinent drug allergies, as well as being made aware of the potential risks of bleeding, infection, spinal cord trauma, paralysis, temporary and permanent nerve damage, seizure, stroke, and possible , the patient was brought to the fluoroscopy suite and positioned prone on the fluoroscopy table. The lumbar region was prepped with Betadine and covered with a fenestrated drape in the usual sterile fashion. Appropriate monitors applied including pulse oximeter, pulse, and blood pressure for regular monitoring throughout the procedure. IV sedation was accomplished with a combination of 2mg of Versed and 50mcg of Fentanyl titrated to patient comfort during the course of the procedure while the patient remained responsive to all verbal commands. After local infiltration using 1% lidocaine, under fluoroscopic guidance, a 10- cm RF insulated needle with a 10-mm active tip was positioned parallel to the junction of the left sacral ala and the superior articulating process where the S1 dorsal ramus resides. Needle placement was confirmed with sensory stimulation at 50 Hz, with motor stimulation of .5v on the left which produced local stimulation without radicular component. The stimulation was then increased to 2v with, once again, only local multifidus stimulation without radicular component. This was then followed by two discreet lesions performed at 80 degrees Celsius for 90 seconds each. The needle was then removed and the identical procedure was performed along the length of the left L5 medial branch with motor stimulation at .7v on the left. The identical procedure was once again performed along the length of the left L4 medial branch with motor stimulation of .5v on the left. The patient tolerated the procedure well without signs or symptoms of complications prior to transfer to the recovery area continued monitoring without incident. The patient was then transferred to the recovery area where they were observed for an appropriate period of time after the injection. The patient was then transferred to the recovery area where they were observed for an appropriate period of time after the injection. The patient reported a VAS score of 9 prior to the procedure and a post- procedure VAS of 0. POST OP INSTRUCTIONS The patient was provided a Pain Log to continue to record the patient's response to the target-specific procedure prior to the patient's follow-up visit with the referring physician. Additionally, specific post-injection care instructions and a contact number to our office were provided if concerns arise regarding possible complications associated with the procedure are suspected.
== END 2024-03-26 11:55 | disposition home or self-care (01) ==
LOC: RAD 10:19
PROVIDERS: Family Provider Family Medicine; PCP Nurse Practitioner Primary Care; Referring Provider Physical Medicine & Rehabilitation; Visit Provider Physical Medicine & Rehabilitation
DX: M47.816 Spondylosis without myelopathy or radiculopathy, lumbar region (principal); M47.817 Spondylosis without myelopathy or radiculopathy, lumbosacral region
CPT/HCPCS: 64635; 64636; 99152; 99153; J2250; J3010